=== PATIENT | female | born 1990 | race African-American/Black ===

== ENCOUNTER 2020-09-21 22:23 | Emergency (ER) | payer MEDICAID, OTHER ==
[~2020-09-21] VITALS: Ht 170.2 cm; Wt 77.1 kg
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
--- NOTE | 2020-09-21 22:50 | NUR ---
ANGEL LUIS MCDANIEL AT BEDSIDE FOR EVALUATION
[2020-09-21] MEDS ORDERED: KETOROLAC TROMETHAMINE INJ 60 MG/2 ML VIAL IM ONE (23:00)
[2020-09-21] MEDS ORDERED: ACETAMINOPHEN 325 MG TABLET PO ONE (23:00)
[2020-09-21] MEDS ORDERED: KETOROLAC TROMETHAMINE INJ 30 MG/ML VIAL ONE (23:04)
[2020-09-21] MEDS ORDERED: ACETAMINOPHEN ES 500 MG TABLET ONE (23:05)
--- NOTE | 2020-09-21 23:33 | NUR ---
RADIOLOGY AT BEDSIDE
--- NOTE | 2020-09-21 23:44 | NUR ---
PT RETURNED FROM CT
--- NOTE | 2020-09-22 00:03 | NUR ---
Patient discharged to home in stable condition. Written and verbal after care instructions given. Patient verbalizes understanding of instruction.Pt ambulatory with a steady gait
[2020-09-22 00:10] VITALS: BP 128/79
== END 2020-09-22 | disposition home or self-care (01) ==
LOC: ER 22:30
DX: S13.4XXA Sprain of ligaments of cervical spine, initial encounter (principal); M25.512 Pain in left shoulder; V49.49XA Driver injured in collision with other motor vehicles in traffic accident, initial encounter; Y93.89 Activity, other specified; Y92.413 State road as the place of occurrence of the external cause; Y99.8 Other external cause status
CPT/HCPCS: 72131; 73030; 84703; 96372; 99284; J1885

== ENCOUNTER 2020-09-25 14:54 | Emergency (ER) | payer OTHER ==
[~2020-09-25] VITALS: Ht 170.2 cm; Wt 77.1 kg
[2020-09-25 15:04] VITALS: BP 118/74
--- NOTE | 2020-09-25 15:25 | NUR ---
SEEN AND EXAMINED BY .
[2020-09-25] MEDS ORDERED: oxyCODONE/APAP (5/325 MG) 1 UDTAB TABLET PO ONE (15:30)
--- NOTE | 2020-09-25 15:37 | NUR ---
URINE SPECIMEN COLLECTED AND SENT TO LAB.
[2020-09-25] MEDS ORDERED: oxyCODONE/APAP (5/325 MG) 1 UDTAB TABLET ONE (15:39)
[2020-09-25] MEDS ORDERED: ACETAMINOPHEN ES 500 MG TABLET ONE (15:43)
[2020-09-25 15:53] LABS: APPEARANCE,URINE Clear (CLEAR); BILIRUBIN,URINE Negative (NEGATIVE); BLOOD, URINE Negative Ery/uL (NEGATIVE); COLOR,URINE Yellow (YELLOW); KETONES,URINE Negative (NEGATIVE); LEUKOCYTE ESTERASE ,URINE Trace (NEGATIVE); NITRITE, URINE Negative (NEGATIVE); PH,URINE 6.5 (5.0-8.0); PROTEIN,URINE Negative (NEGATIVE); UGLUCOSE Negative (NEGATIVE); UROBILINOGEN,URINE 0.2 EU/dL (0.2)
[2020-09-25] MEDS ORDERED: ACETAMINOPHEN ES 500 MG TABLET PO ONE (16:00)
--- NOTE | 2020-09-25 16:02 | NUR ---
Patient discharged to home in stable condition. Written and verbal after care instructions given. Patient verbalizes understanding of instruction.
[2020-09-25 16:11] LABS: BACTERIA,URINE Few /HPF (None Seen); RBC,URINE NONE SEEN /HPF (0-2); SQUAMOUS EPITHELIAL CELL,UR Few /HPF (None Seen)
== END 2020-09-25 16:03 | disposition home or self-care (01) ==
LOC: ER 15:03
DX: S43.492A Other sprain of left shoulder joint, initial encounter (principal); R10.30 Lower abdominal pain, unspecified; V49.69XA Unspecified car occupant injured in collision with other motor vehicles in traffic accident, initial encounter; Y93.89 Activity, other specified; Y92.413 State road as the place of occurrence of the external cause; Y99.8 Other external cause status
CPT/HCPCS: 81000-TC; 84703-TC